=== PATIENT | male | born 1995 | race Caucasian/White ===

== ENCOUNTER 2018-02-10 16:34 | Emergency (ER) | payer BC ==
--- NOTE | 2018-02-10 17:23 | EDPHY ---
General Time Seen by Provider: 02/10/18 17:00 Narrative: CHIEF COMPLAINT: Neck pain HISTORY OF PRESENT ILLNESS: Patient presents with complaints of 1 week history of neck pain. This is generalized. He woke with this pain 1 week ago. Constant duration. Does not radiate. Worse with any position or movement. He has had no headache, fever, numbness, tingling or weakness. No back pain. No incontinence of bowel bladder. No trauma or injury. He feels that is only located in the muscles of the neck. He has never experienced this before. He does not feel ill. He denies any IV drug use. No other associated complaints or modifying factors. REVIEW OF SYSTEMS: Ten systems reviewed and are negative unless otherwise noted in the HPI PAST MEDICAL HISTORY: Uncomplicated medical history. No primary care physician. PAST SURGICAL HISTORY: No surgical history. SOCIAL HISTORY: Admits to smoking cigarettes and occasional marijuana use. Denies any alcohol use. Denies IV drug use. He is employed as a welder gas automatic. Moved here from [place] 5 months ago. FAMILY HISTORY: Noncontributory EXAMINATION General Appearance: Alert, no distress HEENT: Normocephalic and atraumatic. Pupils equal round reactive. Neck: Normal inspection. There is spasm bilaterally the trapezius and into the occipital insertion. There is no bony tenderness or crepitus. Range of motion difficulty due to pain. Cardiovascular: Pulses normal throughout. Brisk cap refill Neurological: GCS 15. A&O, sensory symmetric in the upper lower extremities by bilateral touch. Strength is symmetric at 5/5 in all 4 limbs. Normal patellar reflexes. Skin: Warm and dry, no rash. No petechiae or purpura. No cellulitis or abscess over the skin of the neck. Extremities: Nontender, no pedal edema. There is symmetric range of motion of the upper lower extremities without deficit. Psychiatric: Mood and affect normal DIFFERENTIAL DIAGNOSES: Including but not limited to torticollis, muscle spasm, meningitis, subarachnoid hemorrhage, epidural abscess, epidural hematoma MDM: 5:00 p.m. Acute neck pain that is purely reproducible and clinically appears to be torticollis. He has no history or examination evidence that would suggest meningitis, epidural abscess or epidural hematoma. Vital signs are within normal limits and he does not appear to be ill. I have ordered oral medications for symptoms and will re-evaluate. 6:00 p.m. Patient re-evaluated. He is feeling much better at this time. He is now able to range his neck without any meningismus or rigidity. He has no fever. No headache. He is feeling significantly better and asking to be discharged home. We discharged home with short course of muscle relaxation, anti- inflammatories and instructions to apply warm compresses 4 times daily as needed. I provided the on-call primary care physician for him. I discussed ED precautions for any headache, neuro complaints, fever. We discussed returning here if he does further not have improvement of his symptoms by tomorrow afternoon. He is comfortable this plan and discharged home stable condition. SUPERVISION: This patient was independently evaluated without direct involvement of or examination by the attending physician. ED Precautions: Worsening pain. Erythema, edema, cyanosis, pallor, paresthesia or anesthesia. - History Smoking Status: Never smoked - Objective Vital Signs: Initial Vital Signs Temperature (C) 98.6 F 02/10/18 16:38 Heart Rate 99 02/10/18 16:38 Respiratory Rate 18 02/10/18 16:38 Blood Pressure 141/76 H 02/10/18 16:38 O2 Sat (%) 97 02/10/18 16:38 O2 Delivery Mode Room Air Allergies/Adverse Reactions: No Known Allergies Allergy (Unverified 02/10/18 16:37) Home Medications: Medication Instructions Recorded Diazepam [Valium 5 MG (*)] 5 mg PO TID PRN #15 tab 02/10/18 Gabapentin 02/10/18 Naproxen Sodium [Aleve 220 MG (*)] 220 mg PO BID #30 tab 02/10/18 Medications Given: Discontinued Medications Diazepam (Valium) 5 mg PO EDNOW ONE Stop: 02/10/18 17:25 Last Admin: 02/10/18 17:27 Dose: 5 mg Ibuprofen (Motrin) 600 mg PO EDNOW ONE Stop: 02/10/18 17:25 Last Admin: 02/10/18 17:27 Dose: 600 mg Departure - Departure Disposition: Home, Routine, Self-Care Clinical Impression: Torticollis, acute Condition: Good Instructions: Spasmodic Torticollis (ED) Additional Instructions: 1. Medications as prescribed as needed. Do not mix with alcohol or marijuana. Do not drive or operate machinery 2. Warm compresses to the area as needed. Do not sleep on these. 3. I provided the on-call primary care physician for you to call establish care with 4. Return here for any persistent pain, fever, headache, nausea, vomiting, neuro complaints as discussed. Referrals: Angeles Stacy MD [Medical Doctor] - As per Instructions Prescriptions: Diazepam [Valium 5 MG (*)] 5 mg PO TID PRN #15 tab PRN Reason: Spasms Naproxen Sodium [Aleve 220 MG (*)] 220 mg PO BID #30 tab
[2018-02-10] MEDS ORDERED: DIAZEPAM 5 MG TAB PO ONE (17:24)
[2018-02-10] MEDS ORDERED: IBUPROFEN 600 MG TAB PO ONE (17:24)
[2018-02-10 18:16] VITALS: BP 113/77
== END 2018-02-10 18:15 | disposition home or self-care (01) ==
DX: M43.6 Torticollis (principal); F17.210 Nicotine dependence, cigarettes, uncomplicated